=== PATIENT | male | born 1955 | race African-American/Black ===

== ENCOUNTER → 2016-08-18 | Outpatient (CLI) | payer MEDICARE, BC ==
[~2016-08-18] MED LIST: ACID REFLUX PO; ALDACTAZIDE PO; AMLODIPINE BESYL5 MG PO; AMOXICILLIN875 MG PO; ANEXSIA 7.5/3251 TA1 PO; ANUSOL-HC SUPP25 M1 PR; ANUSOL-HC SUPP25 MG PR; ANUSOL30 GM; ANUSOL30 GM TOP; ASPIRIN EC81 M1 PO; ASPIRIN PO; ASPIRIN81 M1; ASPIRIN81 M1 PO; ASPIRIN81 M2 PO; ASPIRINEC; ATARAX PO; BACTRIM DS TABL1 TA1 PO; BENADRYL IV; BRILINTA90 MG PO; CARAFATE PO; CILOXAN 0.3% O2.5 ML OD; CIPRO PO; CLARITIN10 M2 PO; COZAAR25 MG PO; DOXYCYCLINE PO; EPIPEN0.3 MG/0.1 IM; FAMOTIDINE PO; FLEXERIL PO; FLEXERIL10 MG PO; HCTZ PO; HYDROCODON-ACE1 EACH PO; HYDROCODONE-APA1 T44; IBUPROFEN800 MG PO; IMDUR-ER30 MG PO; IMODIUM2 MG PO; INDOMETHACIN25 MG PO; ISOSORBIDE MONO20 M1 PO; KADIAN20 MG; KEFLEX500 M1 PO; KEFLEX500 MG PO; LIDOCAINE VISCOU1 ML EXT; LIPITOR40 MG PO; LIPITOR80 MG PO; LISINOPRIL; LISINOPRIL10 MG PO; LISINOPRIL20 MG PO; LOPRESSOR; LOPRESSOR PO; LORTAB 10-5001 EACH PO; LORTAB 5/500 TA1 TA1 PO; LORTAB 7.51 TAB PO; LOTREL 10/20 MG1 CAP PO; MEDROL PO; MEDROL4 MG/DOSE- PO; METOPROLOL SUCC50 MG; METOPROLOL TAR25 MG PO; MOBIC PO; NAPROSYN500 MG PO; NORCO 5/325 TAB1 TAB PO; NORCO 7.5-3251 EACH PO; OMEPRAZOLE40 M1 PO; OMEPRAZOLE40 MG PO; ORUDIS75 M1 PO; PATIENT'S PHARMACY; PERCOCET 5-3251 TAB PO; PERCOCET5/325 PO; PLAVIX PO; PREDNISONE PO; PREDNISONE10 MG/DOSE PO; PRILOSEC40 MG PO; PRINIVIL10 MG PO; PRINIVIL20 M1 PO; PROCTOSOL-HC28.35 GM; PROCTOSOL-HC28.35 GM TOP; PROTONIX PO; TOPROL XL 50 MG50 M1 PO; TOPROL XL PO; TOPROL XL100 MG PO; TYLENOL #3 PO; VICODIN 5/1 TAB 5/50 PO; VICODIN 5/500 T1 TAB PO; VICODIN PO; VISTARIL PO; ZOFRAN ODT4 MG SL
== END | disposition home or self-care (01) ==
LOC: CLAB 13:01
DX: Z01.812 Encounter for preprocedural laboratory examination (principal); I10 Essential (primary) hypertension
CPT/HCPCS: 36415; 84132